=== PATIENT | female | born 2000 | race Caucasian/White ===

== ENCOUNTER → 2021-08-21 | Outpatient (CLI) | payer OTHER ==
[2021-08-21 14:38] LABS: Basophils # (A) 0.05 X 10*3/uL (0.00-0.10); Basophils % (A) 0.5 %; Eosinophils # (A) 0.17 X 10*3/uL (0.04-0.35); Eosinophils % (A) 1.6 %; HCT 42.8 % (37.2-46.3); HGB 13.9 g/dL (12.0-15.0); Immature Grans, Automated 0.4 %; Lymphocytes # (A) 3.69 X 10*3/uL (0.90-5.00); Lymphocytes % (A) 35.3 %; MCH 27.3 pg (27.0-32.0); MCHC 32.5 g/dL (32.0-37.0); MCV 83.9 fL (80.0-97.0); Mean Platelet Volume 11.1 fL (9.5-12.2); Monocytes # (A) 0.76 X 10*3/uL (0.20-1.00); Monocytes % (A) 7.3 %; NRBC Per 100 WBC 0 /100 WBCS (0.0-0.0); Neutrophils # (A) 5.75 X 10*3/uL (1.80-7.70); Neutrophils % (A) 54.9 %; Platelet Count 334 X 10*3/uL (140-440); RDW 13.2 % (11.5-14.5); WBC 10.46 X 10*3/uL (4.50-10.00)
[2021-08-21 15:07] LABS: ALT 74 U/L (8-44); AST 47 U/L (13-35); African American GFR (CKD) 143.5 (60.0-200.0); Albumin 4.5 g/dL (3.8-4.9); Albumin/Globulin Ratio 1.45 (1.60-3.17); Alkaline Phosphatase 90 U/L (41-126); Blood Urea Nitrogen 7.7 mg/dL (9.0-27.0); Calcium 9.2 mg/dL (8.7-10.3); Carbon Dioxide 21.8 mmol/L (20.0-27.5); Chloride 99 mmol/L (96-109); Globulin 3.1 g/dL (1.6-3.3); Glucose 84 mg/dL (70-110); Lipase 20 U/L (14-63); Non-African American GFR(CKD) 123.9 (60.0-200.0); Potassium 4.1 mmol/L (3.5-5.5); Sodium 133 mmol/L (135-145); Total Protein 7.6 g/dL (6.2-8.2)
== END | disposition home or self-care (01) ==
LOC: LABWHC1 10:42
PROVIDERS: ATTEND Family Medicine
DX: R19.8 Other specified symptoms and signs involving the digestive system and abdomen (principal); R11.10 Vomiting, unspecified; R10.13 Epigastric pain
CPT/HCPCS: 36415; 80053; 81025; 83690; 84443; 85025